=== PATIENT | male | born 1985 ===

== ENCOUNTER 2017-12-27 13:28 | Outpatient (CLI) | payer OTHER ==
--- NOTE | 2017-12-27 19:40 | XRay Report ---
FINAL REPORT PROCEDURE: XR KNEE 3V LT TECHNIQUE: Left knee, three views HISTORY: PAIN COMPARISON: No prior studies are available for comparison. FINDINGS: No fracture or dislocation is seen. No focal osseous lesions. No joint effusion. IMPRESSION: No acute fracture or dislocation
== END 2017-12-27 13:29 | disposition home or self-care (01) ==
LOC: XRAY 13:28
PROVIDERS: ATTEND Family Medicine
DX: M25.562 Pain in left knee (principal)